=== PATIENT | female | born 1955 | race Hispanic/Latino ===

== ENCOUNTER 2016-11-13 18:44 | Inpatient (IN) | payer OTHER ==
[2016-11-13] MEDS ORDERED: MORPHINE IV ONE ×3 (19:55→23:10)
[2016-11-13] MEDS ORDERED: ZOFRAN IV ONE (20:46)
--- NOTE | 2016-11-13 20:56 | Emergency Department Report ---
ED Fall HPI - General Chief Complaint: Extremity Injury, Upper Stated Complaint: RIGHT SHOULDER PAIN Time Seen by Provider: 11/13/16 20:42 Source: patient Mode of arrival: Ambulatory Limitations: No Limitations - History of Present Illness MD Complaint: fall -: This evening Fall From: standing When Fall Occurred: just prior to arrival Fall Witnessed: yes, by bystander Place Fall Occurred: other (kroger) Loss of Consciousness: none Symptoms Prior to Fall: none Location - Extremities: Right: Shoulder Severity: severe Severity scale (0 -10): 9 Quality: sharp Context: tripped/slipped Associated Symptoms: denies: headache, neck pain, numbness, weakness, chest paint, shortness of breath, abdominal pain, hematuria, unable to walk, lightheaded, vertigo, confusion - Related Data Home Medications Medication Instructions Recorded Confirmed Last Taken ALBUTEROL Inhaler [ProAir HFA 1 inh PO DAILY PRN 11/13/16 11/13/16 Unknown Inhaler] Cyclobenzaprine HCl [Flexeril 5 MG 5 mg PO DAILY 11/13/16 11/13/16 Unknown TAB] FLUoxetine [PROzac] 20 mg PO QDAY 11/13/16 11/13/16 Unknown Fluticasone [Flonase] 1 spray NS QDAY 11/13/16 11/13/16 Unknown Furosemide [Lasix TAB] 40 mg PO QDAY 11/13/16 11/13/16 Unknown Hydroxychloroquine [Plaquenil] 200 mg PO BID 11/13/16 11/13/16 Unknown Ketoprofen 50 mg PO BID 11/13/16 11/13/16 Unknown Loratadine [Claritin] 10 mg PO DAILY 11/13/16 11/13/16 Unknown Metoprolol [Lopressor TAB] 50 mg PO BID 11/13/16 11/13/16 Unknown Montelukast [Singulair] 10 mg PO QPM 11/13/16 11/13/16 Unknown Omeprazole Magnesium [PriLOSEC Otc] 20 mg PO 3XW 11/13/16 11/13/16 Unknown sulfaSALAzine [Azulfidine] 750 mg PO DAILY 11/13/16 11/13/16 Unknown Allergies Allergy/AdvReac Type Severity Reaction Status Date / Time lisinopril Allergy Unknown Verified 11/13/16 19:31 ED Review of Systems ROS: Stated complaint: RIGHT SHOULDER PAIN Other details as noted in HPI Comment: All other systems reviewed and negative Constitutional: denies: chills, fever ENT: denies: ear pain Respiratory: denies: cough, shortness of breath Cardiovascular: denies: chest pain, palpitations Gastrointestinal: denies: abdominal pain, nausea, vomiting, hematemesis Genitourinary: denies: hematuria Skin: denies: lesions Neurological: denies: headache, weakness, numbness, paresthesias, confusion, abnormal gait, vertigo ED Past Medical Hx - Past Medical History Hx Hypertension: Yes Hx Diabetes: Yes Hx GERD: Yes Hx Asthma: Yes Additional medical history: sjogren's syndrome,sleep apnea with C-PAP, polycystic Ovarian,benign breast disease,fibromyalgia,RA,cardiomyopathy,AFIB - Surgical History Additional Surgical History: tonsillectomy,umbilical hernia,carpal tunnel syndrome. FX front upper jaw,left wrist,pelvis,bilateral ft - Social History Smoking Status: Never Smoker Substance Use Type: None - Medications Home Medications: Home Medications Medication Instructions Recorded Confirmed Last Taken Type ALBUTEROL Inhaler [ProAir HFA 1 inh PO DAILY PRN 11/13/16 11/13/16 Unknown History Inhaler] Cyclobenzaprine HCl [Flexeril 5 MG 5 mg PO DAILY 11/13/16 11/13/16 Unknown History TAB] FLUoxetine [PROzac] 20 mg PO QDAY 11/13/16 11/13/16 Unknown History Fluticasone [Flonase] 1 spray NS QDAY 11/13/16 11/13/16 Unknown History Furosemide [Lasix TAB] 40 mg PO QDAY 11/13/16 11/13/16 Unknown History Hydroxychloroquine [Plaquenil] 200 mg PO BID 11/13/16 11/13/16 Unknown History Ketoprofen 50 mg PO BID 11/13/16 11/13/16 Unknown History Loratadine [Claritin] 10 mg PO DAILY 11/13/16 11/13/16 Unknown History Metoprolol [Lopressor TAB] 50 mg PO BID 11/13/16 11/13/16 Unknown History Montelukast [Singulair] 10 mg PO QPM 11/13/16 11/13/16 Unknown History Omeprazole Magnesium [PriLOSEC Otc] 20 mg PO 3XW 11/13/16 11/13/16 Unknown History sulfaSALAzine [Azulfidine] 750 mg PO DAILY 11/13/16 11/13/16 Unknown History ED Physical Exam - General Limitations: Physical Limitation General appearance: alert, in distress (secondary to pain) - Head Head exam: Present: atraumatic, normal inspection - Eye Eye exam: Present: normal appearance Pupils: Present: normal accommodation - ENT ENT exam: Present: normal exam - Neck Neck exam: Present: normal inspection. Absent: tenderness, meningismus, full ROM - Respiratory Respiratory exam: Present: normal lung sounds bilaterally. Absent: respiratory distress, wheezes, rhonchi - Cardiovascular Cardiovascular Exam: Present: regular rate, normal rhythm, normal heart sounds - GI/Abdominal GI/Abdominal exam: Present: soft. Absent: distended, tenderness, guarding, rebound, rigid, mass, pulsatile mass - Expanded Upper Extremity Exam Right Shoulder Exam: Present: tenderness, dislocation. Absent: full ROM, swelling, abrasion, deformity, erythema, tenderness over AC joint Upper Arm exam: Present: normal inspection. Absent: tenderness Elbow exam: Present: normal inspection, full ROM. Absent: tenderness, ecchymosis, deformity Forearm Wrist exam: Present: full ROM. Absent: tenderness, swelling, laceration , deformity Hand Wrist exam: Present: normal inspection, full ROM. Absent: tenderness, swelling, laceration Neuro motor exam: Present: wrist extension intact, thumb opposition intact, thumb IP flexion intact, thumb adduction intact, fingers 2-5 abduction intact Vascular: Present: normal capillary refill. Absent: vascular compromise - Back Exam Back exam: Present: full ROM. Absent: CVA tenderness (R), CVA tenderness (L) - Neurological Exam Neurological exam: Present: alert, oriented X3, CN II-XII intact, normal gait. Absent: motor sensory deficit - Skin Skin exam: Present: warm, intact, normal color ED Course Vital Signs 11/13/16 11/13/16 11/13/16 19:21 20:46 21:35 Temperature 99 F Temperature [ 98.8 F Post-Procedure] Temperature [ 98.8 F Pre-Procedure] Pulse Rate 84 Pulse Rate [ 89 Intra-Procedure ] Pulse Rate [ 86 Post-Procedure] Pulse Rate [Pre 95 H -Procedure] Respiratory 18 18 Rate Respiratory 18 Rate [Intra- Procedure] Respiratory 20 Rate [Post- Procedure] Respiratory 22 Rate [Pre- Procedure] Blood Pressure 152/63 Blood Pressure 164/78 [Intra- Procedure] Blood Pressure 130/75 [Post-Procedure ] Blood Pressure 170/72 [Pre-Procedure] O2 Sat by Pulse 99 99 Oximetry O2 Sat by Pulse 99 Oximetry [ Intra-Procedure ] O2 Sat by Pulse 99 Oximetry [Post -Procedure] O2 Sat by Pulse 99 Oximetry [Pre- Procedure] - Reevaluation(s) Reevaluation #1: 11/13/16 21:[address] Pal who advised to go a head and reduce the shoulder. Reevaluation #2: 11/13/16 23:[address] Gamboa for admission. NPO after midnight for surgery in AM per Dr Pal - Moderate Sedation ASA Class: III Mallampati Airway Score: 3 Preparation: diagnostic cardiac sonographer applied, pulse oximeter, capnometry used, supplemental O2 applied, reversal agents at bedside, suction/airway equipment at bedside, IV secured Fentanyl: IV Midazolam: IV Midazolam Dose: 5 IV Etomidate Dose (mgs): 10 Complications: none Patient Tolerated Procedure: well - Orthopedic Fracture Reduction Fracture #1 Consent Obtained: emergent situation Time Out Performed: Yes Side: right Fracture Reduction Location: humerus Analgesia: moderate sedation Technique: traction/counter-traction Post-Reduction Neuro Exam: intact Post-Reduction Vascular Exam: intact Splint Applied: Yes Patient Tolerated Procedure: well - Orthopedic Joint Reduction Joint #1 Consent Obtained: emergent situation Time Out Performed: Yes Side: right Joint Reduction Location: shoulder Analgesia: moderate sedation Shoulder Technique Used (if applicable): traction/counter-traction Technique Used: traction/counter-traction, direct manipulation Post-Reduction Neuro Exam: intact Post-Reduction Vascular Exam: intact Post Reduction X-Ray Obtained: Yes Splint Applied: Yes Patient Tolerated Procedure: well ED Medical Decision Making - Lab Data Result diagrams: 11/13/16 22:44 11/13/16 22:21 Critical care attestation.: If time is entered above; I have spent that time in minutes in the direct care of this critically ill patient, excluding procedure time. ED Disposition Clinical Impression: Humeral fracture, Shoulder dislocation Disposition: OP ADMIT IP TO THIS HOSP Is pt being admited?: Yes Does the pt Need Aspirin: No Condition: Stable Referrals: PRIMARY CARE,MD [Primary Care Provider] - 3-5 Days
[2016-11-13] MEDS ORDERED: VERSED IV ONE ×2 (21:20→21:25)
[2016-11-13] MEDS ORDERED: SUBLIMAZE IV ONE ×2 (21:20→21:40)
[2016-11-13] MEDS ORDERED: NACL 0.9% 1000 ML 1,000 ML ONE (21:26)
[2016-11-13] MEDS ORDERED: NACL 0.9% 1000 ML 1,000 ML IV ONE (21:29)
[2016-11-13] MEDS ORDERED: VERSED IV NR (21:40)
[2016-11-13] MEDS: AMIDATE IV ONE ×2 (21:42→21:48)
[2016-11-13 22:54] LABS: Basophils % (Auto) 0.2 % (0.0-1.8); Eosinophils % (Auto) 1.9 % (0.0-4.3); Hematocrit 37.1 % (30.3-42.9); Mean Corpuscular HGB Conc 32 % (30-34); Mean Corpuscular Hemoglobin 28 pg (28-32); Mean Corpuscular Volume 85 fl (79-97); Platelet Count 259 K/mm3 (140-440); Red Blood Count 4.35 M/mm3 (3.65-5.03); Red Cell Distribution Width 14.8 % (13.2-15.2)
[2016-11-13 22:54] LABS: Albumin 4.1 g/dL (3.9-5); Albumin/Globulin Ratio 1.8 %; Alkaline Phosphatase 55 units/L (35-129); Anion Gap 22 mmol/L; BUN/Creatinine Ratio 21.66; Blood Urea Nitrogen 13 mg/dL (7-17); Calcium 9.1 mg/dL (8.4-10.2); Carbon Dioxide 21 mmol/L (22-30); Chloride 102.8 mmol/L (98-107); Glucose 193 mg/dL (65-100); Potassium 4.9 mmol/L (3.6-5.0); Sodium 141 mmol/L (137-145); Total Protein 6.4 g/dL (6.3-8.2)
[2016-11-13] MEDS ORDERED: MORPHINE ONE (23:11)
--- NOTE | 2016-11-13 23:23 | History and Physical Report ---
History of Present Illness Chief complaint: I fell and hurt my arm History of present illness: 61 YO Female ([employer]) with HTN, DM, GERD, ASthma, MO, JIGNA, Fibromyalgia, RA, PCOS, Sjogrens, A Fib presents to ED for evaluation. Pt states that she tripped and experienced a fall today landing on her right shoulder. Pt experienced pain immediately after fall and was unable to move her arm due to pain. Pain was 9/10, worse with movement, relieved minimally with non movement. Pt seen and evaluated in ED and found to have a dislocated Right shoulder, and was reduced under anesthesia. Pt denies fever, chills, CP, Palpitations, NVD, syncope, productive cough, or recent ill contacts. Past History Past Medical History: diabetes, GERD, hypertension Past Surgical History: hysterectomy, hernia repair, tonsillectomy, Other ( carpal tunnel) Social history: single, other ([employer]) Family history: diabetes, hypertension Medications and Allergies Allergies Allergy/AdvReac Type Severity Reaction Status Date / Time lisinopril Allergy Unknown Verified 11/13/16 19:31 Home Medications Medication Instructions Recorded Confirmed Last Taken Type ALBUTEROL Inhaler [ProAir HFA 1 inh PO DAILY PRN 11/13/16 11/13/16 Unknown History Inhaler] Cyclobenzaprine HCl [Flexeril 5 MG 5 mg PO DAILY 11/13/16 11/13/16 Unknown History TAB] FLUoxetine [PROzac] 20 mg PO QDAY 11/13/16 11/13/16 Unknown History Fluticasone [Flonase] 1 spray NS QDAY 11/13/16 11/13/16 Unknown History Furosemide [Lasix TAB] 40 mg PO QDAY 11/13/16 11/13/16 Unknown History Hydroxychloroquine [Plaquenil] 200 mg PO BID 11/13/16 11/13/16 Unknown History Ketoprofen 50 mg PO BID 11/13/16 11/13/16 Unknown History Loratadine [Claritin] 10 mg PO DAILY 11/13/16 11/13/16 Unknown History Metoprolol [Lopressor TAB] 50 mg PO BID 11/13/16 11/13/16 Unknown History Montelukast [Singulair] 10 mg PO QPM 11/13/16 11/13/16 Unknown History Omeprazole Magnesium [PriLOSEC Otc] 20 mg PO 3XW 11/13/16 11/13/16 Unknown History sulfaSALAzine [Azulfidine] 750 mg PO DAILY 11/13/16 11/13/16 Unknown History Active Meds: Active Medications Midazolam HCl (Versed) 2 mg IV ONCE NR Stop: 11/14/16 21:39 Last Admin: 11/13/16 21:45 Dose: 2 mg Review of Systems All systems: negative Constitutional: other (fall), no weight loss Ears, nose, mouth and throat: no ear pain Breasts: no swelling Cardiovascular: no chest pain Respiratory: no cough Gastrointestinal: no abdominal pain Genitourinary Female: no flank pain Rectal: no pain Musculoskeletal: no neck stiffness Integumentary: no rash Neurological: no head injury Psychiatric: no anxiety Endocrine: no cold intolerance Hematologic/Lymphatic: no easy bruising Allergic/Immunologic: no urticaria Exam - Constitutional Vitals: Temp Pulse Resp BP Pulse Ox 98.8 F 95 H 18 170/72 99 11/13/16 21:35 11/13/16 21:35 11/13/16 23:20 11/13/16 21:35 11/13/16 21:35 General appearance: Present: mild distress, obese - EENT Eyes: Present: PERRL ENT: hearing intact, clear oral mucosa - Neck Neck: Present: supple, normal ROM - Respiratory Respiratory effort: normal Respiratory: bilateral: CTA - Cardiovascular Rhythm: regular Heart Sounds: Present: S1 & S2. Absent: rub, click - Extremities Extremities: pulses symmetrical, No edema Peripheral Pulses: within normal limits - Abdominal General gastrointestinal: Present: soft, non-tender, non-distended, normal bowel sounds Female genitourinary: Present: normal - Integumentary Integumentary: Present: clear, warm, dry - Musculoskeletal Musculoskeletal: gait normal, strength equal bilaterally - Psychiatric Psychiatric: appropriate mood/affect, intact judgment & insight - Neurologic Neurologic: CNII-XII intact, moves all extremities Results - Labs CBC & Chem 7: 11/13/16 22:44 11/13/16 22:21 Labs: Abnormal lab results 11/13/16 11/13/16 Range/Units 22:21 22:44 WBC 14.0 H (4.5-11.0) K/mm3 [place] % (Auto) 9.5 H (0.0-7.3) % [place] # 1.3 H (0.0-0.8) K/mm3 Seg Neutrophils # 9.6 H (1.8-7.7) K/mm3 Carbon Dioxide 21 L (22-30) mmol/L Creatinine 0.6 L (0.7-1.2) mg/dL Glucose 193 H (65-100) mg/dL Assessment and Plan - Patient Problems (1) HTN (hypertension) Current Visit: Yes Status: Acute Qualifiers: Hypertension type: H Plan to address problem: monitor bp q shift, (2) JIGNA (obstructive sleep apnea) Current Visit: Yes Status: Acute Plan to address problem: supportive care, supplemental oxygen, NIPPV as clinically indicated. (3) Fibromyalgia Current Visit: Yes Status: Acute Plan to address problem: continue current therapy, supportive care. (4) Humeral fracture Current Visit: Yes Status: Acute Qualifiers: Encounter type: E Humerus Location: H Fracture type: F Fracture morphology: F Fracture alignment: F Salter-Harper Fracture Type: S Laterality: L Fracture healing: F Plan to address problem: Lutz consulted, pending surgical intervention in AM (5) Shoulder dislocation Current Visit: Yes Status: Acute Qualifiers: Encounter type: E Laterality: L Plan to address problem: Ortho consulted, S/P shoulder reduction (6) DVT prophylaxis Current Visit: Yes Status: Acute
[2016-11-13 23:24] LABS: Alanine Aminotransferase 27 units/L (7-56)
[2016-11-13] MEDS ORDERED: DULCOLAX PR PRN (23:38)
[2016-11-13] MEDS ORDERED: PERCOCET 5/325 PO PRN (23:38)
[2016-11-13] MEDS ORDERED: ZOFRAN IV PRN (23:38)
[2016-11-13] MEDS ORDERED: MILK OF MAGNESIA PO PRN (23:38)
[2016-11-13] MEDS ORDERED: TYLENOL PO PRN (23:38)
[2016-11-14 01:10] LABS: Partial Thromboplastin Time 24.3 Sec. (24.2-36.6)
[2016-11-14] MEDS: MORPHINE IV PRN ×2 (02:08→08:05)
--- NOTE | 2016-11-14 07:08 | Admit Criteria Form ---
Admission Criteria Documentation: MUSCULOSKELETAL DISEASE GRG Clinical Indications for Admission to Inpatient Care (Place 'X' for any and all applicable criteria): Hospital admission is needed for appropriate care of the patient because of 1 or more of the following: [X ]I. Fracture, dislocation, or other musculoskeletal injury requiring inpatient care(medical) as indicated by 1 or more of the following(4)(5)(6)(7) [ ]a) Vertebral fracture requiring observation for instability or neurologic compromise (8) [ ]b) Compartment syndrome (proven or cannot be ruled out during observation level of care) (9) [ ]c) Limb-threatening injury [ ]d) Major injury requiring inpatient stabilization such as traction initiation or external fixation before internal fixation or closure of complex or open fracture [X ]e) Major injury requiring inpatient treatment after emergency or observation level care (as appropriate) [ ]f) Severe pain requiring acute inpatient management [ ]g) Injury with suspicion of abuse or neglect (eg., child, dependent elderly) [ ]II. Newly diagnosed or suspected bone, joint, or orthopedic device infection (e.g., osteomyelitis, septic arthritis) needing 1 or more of the following(1)(2)(3) [ ]a) IV antibiotics that cannot be initiated in other than inpatient setting (e.g., patient too unstable or home infusion not available) [ ]b) Device removal or replacement [ ]c) Bone or soft tissue debridement [ ]d) Joint drainage (drain placement or repetitive aspirations) [ ]III. Severe rheumatologic disease (e.g., systemic lupus erythematosus, rheumatoid arthritis) with complications or comorbidities (Also use Optimal Recovery Care Criteria or General Recovery Criteria as appropriate on the basis of predominant condition), including 1 or more of the following( 10)(11)(12)(13) [ ]a) Severe infection (e.g., [employer] SW[employer] infection, sepsis) (14) [ ]b) Respiratory complications, including 1 or more of the following : [ ]i) Pleural effusion with respiratory compromise [ ]ii) Pulmonary hypertension with congestive failure [ ]iii) Respiratory failure [ ]iv) Pulmonary hemorrhage (15) [ ]c) Hematologic disease, including 1 or more of the following: [ ]i) Coagulopathy with bleeding [ ]ii) Thrombosis with hypercoagulable state [ ]iii) Thrombotic thrombocytopenic purpura [ ]d) Cerebritis with seizures, psychosis, or other severe abnormalities [ ]e) Vertebral destruction with monitoring needed for cervical myelopathy& possible respiratory compromise [ ]f) Exacerbation that requires inpatient treatment (e.g., intravenous immunosuppression) (16) [ ]g) Acute renal failure [ ]h) Cerebritis with seizures, psychosis, Altered mental status, or other neurologic abnormalities [ ]i) Pericardial effusion with tamponade [ ]j) Vertebral destruction, with monitoring needed for cervical myelopathy and possible respiratory compromise [ ]IV. Severe vasculitis with complications or comorbidities (Also use Optimal Recovery Care Criteria General Recovery Criteria as appropriate on the basis of predominant condition), including 1 or more of the following(11)(12)(17)(18)(19)(20) [ ]a) Exacerbation that requires inpatient treatment (e.g., intravenous immunosuppression) (19)(21) [ ]b) Pulmonary hemorrhage (15) [ ]c) [employer] SW[employer] O[employer] vasculitis with seizures, psychosis, Altered mental status that is severe or persistent, or other severe abnormalities (22) [ ]d) Cerebral infarction [ ]e) Gastrointestinal ischemia [ ]f) Gangrene or threatened amputation [ ]g) Renal failure (16) [ ]h) Other significant complications of vasculitis ( eg., tissue or organ ischemia, organ dysfunction ) [ ]V. Severe myopathy as indicated by 1 or more of the following (28)(29) [ ]a) New onset of airway compromise or inability to swallow [ ]b) Respiratory deterioration with observation needed for impending respiratory failure [ ]c) Exacerbation that requires inpatient treatment (e.g., intravenous immunosuppression) [ ]. Severe crystal gout (arthropathy) indicated by 1 or more of the following (23)(24) [ ]a) Severe pain requiring acute inpatient management [ ]b) Exacerbation that requires inpatient treatment (e.g., intravenous treatment) [ ]VII.Rhabdomyolysis and 1 or more of the following (25)(26)(27) [ ]a) Acute renal failure [ ]b) Need for intravenous hydration after emergency or observation level care (as appropriate) [ ]c) Inability to maintain oral hydration [ ]d) Change in mental status [ ]e) Electrolyte abnormality that remains after emergency or observation level care (as appropriate) [ ]VIII Post amputation complication, as indicated by ANY ONE of the following [ ]a) Infection [ ]b) Dehiscence [ ]c) Myodesis failure [ ]IX. Severe pain requiring acute inpatient management due to musculoskeletal condition [ ]X. Musculoskeletal Disease and ALL of the following: [ ]a) Symptom or finding for which emergency and observation care have failed or are not considered appropriate (Use General Criteria: Observation Care as appropriate) [ ]b) Presence of ANY ONE of the following [ ]i) A General Admission Criteria [ ]ii) A Pediatric General Admission Criteria The original [facility] [employer] content created by [facility] [email or web address] has been revised. The portions of the content which have been revised are identified through the use of italic text or in bold, and [facility] has neither reviewed nor approved the modified material. All other unmodified content is copyright [facility] [email or web address]. Please see references footnoted in the original [email or web address] edition 2016 Admission Criteria Met: Yes
[2016-11-14] MEDS ORDERED: ZOFRAN ONE (08:00)
--- NOTE | 2016-11-14 08:52 | XRay Report ---
PORTABLE CHEST INDICATION: Chest pain. COMPARISON: 06/13/2010 FINDINGS: Portable, frontal chest radiograph demonstrates slight motion artifact with grossly stable cardiomediastinal silhouette and increased bronchovascular prominence centrally, given slight difference in inspiration. No large pleural effusions or CHF. EKG leads. Grossly stable bones. CONCLUSION: Findings, as above. Thank you for the opportunity to participate in this patient's care.
--- NOTE | 2016-11-14 09:00 | XRay Report ---
RIGHT SHOULDER, 3 views: History: Pain. A comminuted fracture involving the right humeral head and neck is identified. No additional fracture is appreciated. Large joint effusion is suspected. IMPRESSION: Right humeral head and neck fracture. Joint effusion.
--- NOTE | 2016-11-14 09:01 | XRay Report ---
RIGHT SHOULDER, ONE VIEW History: Postreduction film. Findings: Position and alignment of the right humeral head is unchanged since earlier today at 1943 hrs. There is inferior subluxation of the humeral head secondary to a large joint effusion/hemarthrosis but no dislocation. Comminuted fracture of the proximal humerus is unchanged. Impression: No change.
[2016-11-14] MEDS ORDERED: AMIDATE IV ONE (10:40)
[2016-11-14] MEDS ORDERED: MORPHINE IV PRN ×2 (11:38→20:18)
[2016-11-14] MEDS ORDERED: PROAIR IH PRN (11:38)
[2016-11-14] MEDS: NOVOLOG SUB-Q SCH ×3 (12:00→23:27)
[2016-11-14 12:55] LABS: Basophils % (Auto) 0.5 % (0.0-1.8); Eosinophils % (Auto) 1.3 % (0.0-4.3); Hemoglobin 11.8 gm/dl (10.1-14.3); Mean Corpuscular HGB Conc 34 % (30-34); Mean Corpuscular Hemoglobin 28 pg (28-32); Mean Corpuscular Volume 84 fl (79-97); Platelet Count 222 K/mm3 (140-440); Red Blood Count 4.19 M/mm3 (3.65-5.03); Red Cell Distribution Width 14.7 % (13.2-15.2); White Blood Count 10.9 K/mm3 (4.5-11.0)
[2016-11-14] MEDS: LASIX PO SCH (13:00)
[2016-11-14] MEDS: LOPRESSOR PO SCH ×2 (13:00→23:10)
[2016-11-14] MEDS: PLAQUENIL PO SCH ×2 (13:00→23:10)
[2016-11-14] MEDS: PROzac PO SCH (13:00)
[2016-11-14] MEDS: AZULFIDINE PO SCH (13:00)
--- NOTE | 2016-11-14 14:22 | Progress Note ---
Assessment and Plan Assessment and plan: 61 YO Female (Jehova's Witness) with HTN, DM, GERD, ASthma, MO, JIGNA, Fibromyalgia, RA, PCOS, Sjogrens, A Fib presents to ED for evaluation. Pt states that she tripped and experienced a fall today landing on her right shoulder. Pt experienced pain immediately after fall and was unable to move her arm due to pain. Pain was 9/10, worse with movement, relieved minimally with non movement. Pt seen and evaluated in ED and found to have a dislocated Right shoulder, and was reduced under anesthesia. Pt denies fever, chills, CP, Palpitations, NVD, syncope, productive cough, or recent ill contacts. * Intermittent fracture of the proximal humerus with inferior subluxation of the humeral head * Orthopedic surgeon following patient planned for surgery today. Continue pain control. * Hypertension * Continue home medication. * Diabetes Mellitus * Patient on metformin at home, will start on Accu-Cheks before meals and at bedtime * Fibromyalgia * Continue supportive care * Morbid Obesity * Discussed with patient weight management options she verbalizes understanding * Leukocytosis-resolved * Obstructive sleep apnea * CPAP daily at bedtime * DVT and GI prophylaxis * Plan care discussed with the patient in detail History Interval history: Patient seen and examined this morning remains with pain on the right shoulder which is currently in a sling. Patient was admitted with right upper extremity pain following a fall was noted to have a comminuted fracture of the proximal humerus with inferior subluxation of the humeral head. Patient describes as 5/ 10 in intensity was with movement. Denies any fever, nausea, vomiting or diarrhea. Hospitalist Physical - Physical exam Narrative exam: VITAL SIGNS: Reviewed. GENERAL: The patient appeared well nourished and normally developed. Morbidly obese, Vital signs as documented. HEAD: No signs of head trauma. EYES: Pupils are equal. Extraocular motions intact. EARS: Hearing grossly intact. MOUTH: Oropharynx is normal. NECK: No adenopathy, no JVD. CHEST: Chest with clear breath sounds bilaterally. No wheezes, rales, or rhonchi. CARDIAC: Regular rate and rhythm. S1 and S2, without murmurs, gallops, or rubs. VASCULAR: No Edema. Peripheral pulses normal and equal in all extremities. ABDOMEN: Soft, without detectable tenderness. No sign of distention. No rebound or guarding, and no masses palpated. Bowel Sounds normal. MUSCULOSKELETAL: Limited range of motion right upper extremity in a sling. Extremities without clubbing, cyanosis or edema. NEUROLOGIC EXAM: Alert and oriented x 3. No focal sensory or strength deficits. Speech normal. Follows commands. PSYCHIATRIC: Mood normal. SKIN: No rash or lesions. - Constitutional Vitals: Temp Pulse Resp BP Pulse Ox 99.2 F 81 19 125/77 97 11/14/16 07:00 11/14/16 07:00 11/14/16 07:00 11/14/16 07:00 11/14/16 02:00 General appearance: Present: mild distress, obese Results - Labs CBC & Chem 7: 11/14/16 12:29 11/13/16 22:21 Labs: Laboratory Last Values WBC 10.9 K/mm3 (4.5-11.0) 11/14/16 12:29 RBC 4.19 M/mm3 (3.65-5.03) 11/14/16 12:29 Hgb 11.8 gm/dl (10.1-14.3) 11/14/16 12:29 Hct 35.0 % (30.3-42.9) 11/14/16 12:29 MCV 84 fl (79-97) 11/14/16 12:29 MCH 28 pg (28-32) 11/14/16 12:29 MCHC 34 % (30-34) 11/14/16 12:29 RDW 14.7 % (13.2-15.2) 11/14/16 12:29 Plt Count 222 K/mm3 (140-440) 11/14/16 12:29 Lymph % (Auto) 16.9 % (13.4-35.0) 11/14/16 12:29 [place] % (Auto) 12.2 % (0.0-7.3) H 11/14/16 12:29 Eos % (Auto) 1.3 % (0.0-4.3) 11/14/16 12:29 Baso % (Auto) 0.5 % (0.0-1.8) 11/14/16 12:29 Lymph # 1.8 K/mm3 (1.2-5.4) 11/14/16 12:29 [place] # 1.3 K/mm3 (0.0-0.8) H 11/14/16 12:29 Eos # 0.1 K/mm3 (0.0-0.4) 11/14/16 12:29 Baso # 0.1 K/mm3 (0.0-0.1) 11/14/16 12:29 Seg Neutrophils % 69.1 % (40.0-70.0) 11/14/16 12:29 Seg Neutrophils # 7.5 K/mm3 (1.8-7.7) 11/14/16 12:29 PT 13.1 Sec. (12.2-14.9) 11/13/16 00:10 INR 1.00 (0.87-1.13) 11/13/16 00:10 APTT 24.3 Sec. (24.2-36.6) 11/13/16 00:10 Sodium 141 mmol/L (137-145) 11/13/16 22:21 Potassium 4.9 mmol/L (3.6-5.0) 11/13/16 22:21 Chloride 102.8 mmol/L (98-107) 11/13/16 22:21 Carbon Dioxide 21 mmol/L (22-30) L 11/13/16 22:21 Anion Gap 22 mmol/L 11/13/16 22:21 BUN 13 mg/dL (7-17) 11/13/16 22:21 Creatinine 0.6 mg/dL (0.7-1.2) L 11/13/16 22:21 Estimated GFR > 60 ml/min 11/13/16 22:21 BUN/Creatinine Ratio 21.66 % 11/13/16 22:21 Glucose 193 mg/dL (65-100) H 11/13/16 22:21 POC Glucose 169 (70-105) H 11/14/16 11:38 Calcium 9.1 mg/dL (8.4-10.2) 11/13/16 22:21 Total Bilirubin 0.20 mg/dL (0.1-1.2) 11/13/16 22:21 AST 38 units/L (5-40) 11/13/16 22:21 ALT 27 units/L (7-56) 11/13/16 22:21 Alkaline Phosphatase 55 units/L (35-129) 11/13/16 22:21 Total Protein 6.4 g/dL (6.3-8.2) 11/13/16 22:21 Albumin 4.1 g/dL (3.9-5) 11/13/16 22:21 Albumin/Globulin Ratio 1.8 % 11/13/16 22:21 - Imaging and Cardiology Chest x-ray: image reviewed (no acute pathology noted)
[2016-11-14] MEDS: FLONASE NS SCH (14:28)
--- NOTE | 2016-11-14 16:28 | Anesthesia Day of Surgery ---
Anesthesia Day of Surgery - Day of Surgery Patient Examined: Yes Patient H&P Reviewed: Yes Patient is NPO: Yes
--- NOTE | 2016-11-14 16:28 | Anesthesia Consultation ---
Anesthesia Consult and Med Hx Date of service: 11/14/16 - Airway Anesthetic Teeth Evaluation: Good ROM Head & Neck: Adequate Mental/Hyoid Distance: Adequate Mallampati Class: Class II Intubation Access Assessment: Good - Pulmonary Exam CTA: Yes - Cardiac Exam Cardiac Exam: RRR - Pre-Operative Health Status ASA Pre-Surgery Classification: ASA3 Proposed Anesthetic Plan: General Nerve Block: IS - Pulmonary Hx Asthma: Yes COPD: No Hx Pneumonia: Yes - Cardiovascular System Hx Hypertension: Yes - Central Nervous System Hx Psychiatric Problems: No - Endocrine Hx End Stage Renal Disease: No Hx Non-Insulin Dependent Diabetes: Yes - Hematic Hx Anemia: No Hx Sickle Cell Disease: No - Other Systems Hx Alcohol Use: Yes Hx Substance Use: No Hx Cancer: No Hx Obesity: Yes
[2016-11-14] MEDS ORDERED: DECADRON IV ONE (16:31)
[2016-11-14] MEDS ORDERED: DIPRIVAN 10 MG/ML IV ONE (16:42)
[2016-11-14] MEDS ORDERED: SUBLIMAZE ONE (16:42)
[2016-11-14] MEDS ORDERED: XYLOCAINE 1% 20 mL ONE (16:47)
[2016-11-14] MEDS ORDERED: MARCAINE-EPI/PF 0.5%-1:200,000 INFILTRATI ONE (16:47)
[2016-11-14] MEDS: NACL 0.9% 1000 ML 1,000 ML IV SCH (16:53)
[2016-11-14] MEDS ORDERED: PEPCID PO NR (17:00)
[2016-11-14] MEDS ORDERED: ANCEF/STERILE WATER 2 GM/20 ML IV NR (17:00)
[2016-11-14] MEDS ORDERED: NEURONTIN PO NR (17:00)
[2016-11-14] MEDS ORDERED: MARCAINE 0.5% INFILTRATI NR (17:00)
[2016-11-14] MEDS ORDERED: VERSED IV NR (17:00)
[2016-11-14] MEDS: SINGULAIR PO SCH (17:22)
[2016-11-14] MEDS ORDERED: XYLOCAINE MPF 2% ONE (18:34)
[2016-11-14] MEDS ORDERED: NACL 0.9% 1000 ML 1,000 ML ONE (19:32)
[2016-11-14] MEDS: PROVENTIL IH PRN (20:12)
--- NOTE | 2016-11-14 20:39 | Procedure Note ---
Date of procedure: 11/14/16 Pre-op diagnosis: fracture dislocation right shoulder Post-op diagnosis: same Procedure: Procedure- close reduction and insertion of intramedullary nail right humerus Indications - [id number] female who complained of right shoulder pain after a slip and fall injury, she was seen in the emergency room where x-rays were taken revealing a fracture dislocation. Multiple attempts at closed reduction were unsuccessful therefore patient was admitted and being taken now to the or for the above procedure Procedure Patient was brought to the OR after being given a scalene nerve block in preoperative holding she was placed on the OR table in a supine position followed and induction and intubation by anesthesia patient was placed in a beachchair position with the right upper extremity draped and suspended from the table. The right shoulder and arm was then prepped and draped in the usual sterile manner. Timeout procedure was done to identify the patient and the. Using C-arm fluoroscopy a guidewire placed over the intended insertion site a stab wound was made on the top of the shoulder and was carried down through skin and subcutaneous and through the deltoid and supraspinatus tendon guidewire was then advanced further into the canal using C-arm fluoroscopy asked to guidewire was then overreamed a short IM nail was then inserted antegrade into the proximal humerus again under C-arm fluoroscopy 2 locking screws were placed proximally through the greater tuberosity and lesser tuberosities a third screw noted at the kickstand was used to stabilize the proximal and distal fragments this was then followed by 2 distally locking screws in AP and lateral image was obtained and showed good reduction of the fracture as well as the anterior dislocation following this the wound was copiously irrigated the incision was closed starting with the rotator cuff tendon deltoid fascia subcutaneous tissue and finally the skin the additional stab wounds for the proximal and distal locking screws were also irrigated and closed routine postoperative dressings were applied the patient tolerated the procedure there were no complications Anesthesia: GETA Surgeon: ROSI BLAIR (veterinary assistant Phill Mitchell) Estimated blood loss: 50-100ml Pathology: none Condition: stable Disposition: PACU
[2016-11-14] MEDS: DILAUDID IV PRN ×2 (20:55→23:11)
[2016-11-14] MEDS ORDERED: TORADOL IV PRN ×3 (20:58→21:45)
[2016-11-14] MEDS ORDERED: SODIUM CHLORIDE FLUSH SYRINGE 10 ML IV SCH (21:00)
[2016-11-14] MEDS ORDERED: NORMODYNE IV ONE (21:15)
[2016-11-15] MEDS ORDERED: ANCEF/NS 1 GM/50 ML 1 GM/50 ML BAG IV SCH (01:00)
[2016-11-15] MEDS: DILAUDID IV PRN ×2 (06:28→09:01)
[2016-11-15] MEDS: NACL 0.9% 1000 ML 1,000 ML IV SCH (06:30)
--- NOTE | 2016-11-15 08:12 | XRay Report ---
RIGHT SHOULDER, ONE VIEW History: Right shoulder fracture, intraoperative film. Findings: 2 AP fluoroscopic images of the right shoulder were obtained during surgery. The regional coordinator image demonstrates a comminuted fracture of the right humeral head and neck. The second image demonstrates internal fixation of the fracture with metal adin and screws. Alignment is near-anatomic. Please correlate with the procedural report by Dr. Lawson if needed. Impression: Open reduction and internal fixation of a proximal right humerus fracture.
--- NOTE | 2016-11-15 08:14 | XRay Report ---
RIGHT SHOULDER, 2 VIEWS History: Right shoulder film, postoperative films. Pain. Findings: AP and internally rotated films of the right shoulder demonstrate an internally fixated proximal humerus fracture. Alignment is near-anatomic. Impression: Internal fixation of a proximal right humerus fracture.
[2016-11-15] MEDS: NOVOLOG SUB-Q SCH ×2 (08:44→12:24)
[2016-11-15] MEDS: PROVENTIL IH PRN (09:05)
[2016-11-15] MEDS: PLAQUENIL PO SCH ×2 (11:07→21:47)
[2016-11-15] MEDS: PROzac PO SCH (11:08)
[2016-11-15] MEDS: LOPRESSOR PO SCH ×2 (11:08→21:48)
[2016-11-15] MEDS: LASIX PO SCH (11:08)
[2016-11-15] MEDS: AZULFIDINE PO SCH (11:09)
[2016-11-15] MEDS: FLONASE NS SCH (12:20)
[2016-11-15] MEDS ORDERED: NACL ONE (12:41)
--- NOTE | 2016-11-15 13:33 | Progress Note ---
Assessment and Plan Assessment and plan: 61 YO Female (Jehova's Witness) with HTN, DM, GERD, ASthma, MO, JIGNA, Fibromyalgia, RA, PCOS, Sjogrens, A Fib presents to ED for evaluation. Pt states that she tripped and experienced a fall today landing on her right shoulder. Pt experienced pain immediately after fall and was unable to move her arm due to pain. Pain was 9/10, worse with movement, relieved minimally with non movement. Pt seen and evaluated in ED and found to have a dislocated Right shoulder, and was reduced under anesthesia. Pt denies fever, chills, CP, Palpitations, NVD, syncope, productive cough, or recent ill contacts. * Acute respiratory distress possible secondary to obesity hypoventilation syndrome * CT of the chest rule out PE given a one-time dose of steroids, start patient on DuoNeb scheduled in addition to when necessary * Intermittent fracture of the proximal humerus with inferior subluxation of the humeral head * Status post close reduction and insertion of intramedullary nail right humerus. Continue pain control. * Incentive spirometer * Hypertension * Continue home medication. * Diabetes Mellitus * Patient on metformin at home, will start on Accu-Cheks before meals and at bedtime * Fibromyalgia * Continue supportive care * Morbid Obesity * Discussed with patient weight management options she verbalizes understanding * Leukocytosis-resolved * Obstructive sleep apnea * CPAP daily at bedtime * DVT and GI prophylaxis * Plan care discussed with the patient in detail * Anticipate discharge in a.m. History Interval history: Patient seen and examined, proceeded to have right shoulder surgery yesterday. This morning having some shortness of breath. Although improving the time I saw her. She denies any chest pain. No other adverse event reported to me Hospitalist Physical - Physical exam Narrative exam: VITAL SIGNS: Reviewed. GENERAL: The patient appeared well nourished and normally developed. Morbidly obese, Vital signs as documented. HEAD: No signs of head trauma. EYES: Pupils are equal. Extraocular motions intact. EARS: Hearing grossly intact. MOUTH: Oropharynx is normal. NECK: No adenopathy, no JVD. CHEST: Chest with diminished breath sounds bilaterally. No wheezes, rales, or rhonchi. Mild increase in work of breathing CARDIAC: Regular rate and rhythm. S1 and S2, without murmurs, gallops, or rubs. VASCULAR: No Edema. Peripheral pulses normal and equal in all extremities. ABDOMEN: Soft, without detectable tenderness. No sign of distention. No rebound or guarding, and no masses palpated. Bowel Sounds normal. MUSCULOSKELETAL: Limited range of motion right upper extremity in a sling. Extremities without clubbing, cyanosis or edema. NEUROLOGIC EXAM: Alert and oriented x 3. No focal sensory or strength deficits. Speech normal. Follows commands. PSYCHIATRIC: Mood normal. SKIN: No rash or lesions. - Constitutional Vitals: Temp Pulse Resp BP Pulse Ox 98 F 80 20 121/68 95 11/15/16 08:00 11/15/16 08:00 11/15/16 08:00 11/15/16 08:00 11/15/16 08:00 General appearance: Present: mild distress, obese Results - Labs CBC & Chem 7: 11/14/16 12:29 11/13/16 22:21 Labs: Laboratory Last Values WBC 10.9 K/mm3 (4.5-11.0) 11/14/16 12:29 RBC 4.19 M/mm3 (3.65-5.03) 11/14/16 12:29 Hgb 11.8 gm/dl (10.1-14.3) 11/14/16 12:29 Hct 35.0 % (30.3-42.9) 11/14/16 12:29 MCV 84 fl (79-97) 11/14/16 12:29 MCH 28 pg (28-32) 11/14/16 12:29 MCHC 34 % (30-34) 11/14/16 12:29 RDW 14.7 % (13.2-15.2) 11/14/16 12:29 Plt Count 222 K/mm3 (140-440) 11/14/16 12:29 Lymph % (Auto) 16.9 % (13.4-35.0) 11/14/16 12:29 [place] % (Auto) 12.2 % (0.0-7.3) H 11/14/16 12:29 Eos % (Auto) 1.3 % (0.0-4.3) 11/14/16 12:29 Baso % (Auto) 0.5 % (0.0-1.8) 11/14/16 12:29 Lymph # 1.8 K/mm3 (1.2-5.4) 11/14/16 12:29 [place] # 1.3 K/mm3 (0.0-0.8) H 11/14/16 12:29 Eos # 0.1 K/mm3 (0.0-0.4) 11/14/16 12:29 Baso # 0.1 K/mm3 (0.0-0.1) 11/14/16 12:29 Seg Neutrophils % 69.1 % (40.0-70.0) 11/14/16 12:29 Seg Neutrophils # 7.5 K/mm3 (1.8-7.7) 11/14/16 12:29 PT 13.1 Sec. (12.2-14.9) 11/13/16 00:10 INR 1.00 (0.87-1.13) 11/13/16 00:10 APTT 24.3 Sec. (24.2-36.6) 11/13/16 00:10 D-Dimer 2719.62 ng/mlDDU (0-234) H 11/14/16 21:13 Sodium 141 mmol/L (137-145) 11/13/16 22:21 Potassium 4.9 mmol/L (3.6-5.0) 11/13/16 22:21 Chloride 102.8 mmol/L (98-107) 11/13/16 22:21 Carbon Dioxide 21 mmol/L (22-30) L 11/13/16 22:21 Anion Gap 22 mmol/L 11/13/16 22:21 BUN 13 mg/dL (7-17) 11/13/16 22:21 Creatinine 0.6 mg/dL (0.7-1.2) L 11/13/16 22:21 Estimated GFR > 60 ml/min 11/13/16 22:21 BUN/Creatinine Ratio 21.66 % 11/13/16 22:21 Glucose 193 mg/dL (65-100) H 11/13/16 22:21 POC Glucose 173 (70-105) H 11/15/16 12:01 Calcium 9.1 mg/dL (8.4-10.2) 11/13/16 22:21 Magnesium 1.60 mg/dL (1.7-2.3) L 11/14/16 21:13 Total Bilirubin 0.20 mg/dL (0.1-1.2) 11/13/16 22:21 AST 38 units/L (5-40) 11/13/16 22:21 ALT 27 units/L (7-56) 11/13/16 22:21 Alkaline Phosphatase 55 units/L (35-129) 11/13/16 22:21 Troponin T < 0.010 ng/mL (0.00-0.029) 11/14/16 21:13 Total Protein 6.4 g/dL (6.3-8.2) 11/13/16 22:21 Albumin 4.1 g/dL (3.9-5) 11/13/16 22:21 Albumin/Globulin Ratio 1.8 % 11/13/16 22:21 - Imaging and Cardiology CT scan - chest: pending
[2016-11-15] MEDS: ELIQUIS PO SCH (15:34)
[2016-11-15] MEDS: MORPHINE IV PRN ×2 (15:35→21:46)
[2016-11-15] MEDS: DUONEB *Not for PRN Use IH SCH ×2 (16:19→20:31)
[2016-11-15] MEDS: SINGULAIR PO SCH (19:23)
[2016-11-16] MEDS: ELIQUIS PO SCH ×2 (02:44→11:31)
[2016-11-16] MEDS: SINGULAIR PO SCH ×2 (02:44→17:47)
[2016-11-16] MEDS: NACL 0.9% 1000 ML 1,000 ML IV SCH (02:49)
[2016-11-16] MEDS: MORPHINE IV PRN (07:40)
[2016-11-16] MEDS: NOVOLOG SUB-Q SCH ×4 (08:39→17:46)
[2016-11-16] MEDS: DUONEB *Not for PRN Use IH SCH ×2 (09:14→15:19)
--- NOTE | 2016-11-16 11:18 | Discharge Summary ---
Providers - Providers Date of Admission: 11/13/16 23:38 Date of discharge: 11/16/16 Attending physician: DUNG PELAEZ MD 11/14/16 20:23 Physical Therapy Evaluation and Treat [CONS] Routine Comment: pendulum exercises right shoulder Reason For Exam: postop evaluation Primary care physician: MEMBERSHIP COUNSELOR Hospitalization Reason for admission: humerus fracture Condition: Stable Hospital course: 61 YO Female (Jehova's Witness) with HTN, DM, GERD, ASthma, MO, JIGNA, Fibromyalgia, RA, PCOS, Sjogrens, A Fib presents to ED for evaluation. Pt states that she tripped and experienced a fall today landing on her right shoulder. Pt experienced pain immediately after fall and was unable to move her arm due to pain. Pain was 9/10, worse with movement, relieved minimally with non movement. Pt seen and evaluated in ED and found to have a dislocated Right shoulder, and was reduced under anesthesia. Pt denies fever, chills, CP, Palpitations, NVD, syncope, productive cough, or recent ill contacts. * Acute respiratory distress possible secondary to obesity hypoventilation syndrome * Patient could not do VQ scan all CTA due to weight and recent surgery. Was started on presumptive treatment for PE due to elevated d-dimer. Side effect of medication discussed with the patient detail. * Home on Discharge. * Intermittent fracture of the proximal humerus with inferior subluxation of the humeral head * Status post close reduction and insertion of intramedullary nail right humerus. OT outpatient * Incentive spirometer * Hypertension * Continue home medication. * Diabetes Mellitus * Patient on metformin at home, resume PO * Fibromyalgia * Continue supportive care * Morbid Obesity * Discussed with patient weight management options she verbalizes understanding * Leukocytosis-resolved * Obstructive sleep apnea * CPAP daily at bedtime Patient advised to follow with Orthopedic surgery and PCP also with P[ulmonary on discharge. Disposition: [id number] HOME UNDER HOME [facility] Time spent for discharge: 35 MINS Core Measure Documentation - Palliative Care Palliative Care/ Comfort Measures: Not Applicable - Core Measures Any of the following diagnoses?: none - VTE Discharge Requirements Deep Vein Thrombosis/Pulmonary Embolism Present on Admission: No Exam - Physical Exam Narrative exam: VITAL SIGNS: Reviewed. GENERAL: The patient appeared well nourished and normally developed. Morbidly obese, Vital signs as documented. HEAD: No signs of head trauma. EYES: Pupils are equal. Extraocular motions intact. EARS: Hearing grossly intact. MOUTH: Oropharynx is normal. NECK: No adenopathy, no JVD. CHEST: Chest with diminished breath sounds bilaterally. No wheezes, rales, or rhonchi. CARDIAC: Regular rate and rhythm. S1 and S2, without murmurs, gallops, or rubs. VASCULAR: No Edema. Peripheral pulses normal and equal in all extremities. ABDOMEN: Soft, without detectable tenderness. No sign of distention. No rebound or guarding, and no masses palpated. Bowel Sounds normal. MUSCULOSKELETAL: Limited range of motion right upper extremity in a sling. Extremities without clubbing, cyanosis or edema. NEUROLOGIC EXAM: Alert and oriented x 3. No focal sensory or strength deficits. Speech normal. Follows commands. PSYCHIATRIC: Mood normal. SKIN: No rash or lesions. - Constitutional Vitals: Temp Pulse Resp BP Pulse Ox 99.8 F H 97 H 18 141/67 91 11/16/16 08:00 11/16/16 09:30 11/16/16 09:30 11/16/16 08:00 11/16/16 09:18 Plan Activity: advance as tolerated, fall precautions Diet: low fat, diabetic Special Instructions: record daily weights, record daily BP diary, physical therapy, occupational therapy, home oxygen via (2L/M NC) Additional Instructions: Do no return to work untill cleared by PCP in 1 week Follow up with: PRIMARY CAREMD [Primary Care Provider] - 3-5 Days ROSI BLAIR MD [Staff Physician] - 7 Days Prescriptions: Apixaban [Eliquis] 10 mg PO Q12HR 7 Days Apixaban [Eliquis] 5 mg PO BID 30 Days Famotidine [Pepcid] 20 mg PO BID #30 tablet oxyCODONE /ACETAMINOPHEN [Percocet 5/325 mg] 1 tab PO Q6H PRN 3 Days PRN Reason: Pain, Moderate (4-6)
[2016-11-16] MEDS: LOPRESSOR PO SCH (11:30)
[2016-11-16] MEDS: PLAQUENIL PO SCH (11:31)
[2016-11-16] MEDS: AZULFIDINE PO SCH (11:31)
[2016-11-16] MEDS: PROzac PO SCH (11:32)
[2016-11-16] MEDS: LASIX PO SCH (11:32)
[2016-11-16] MEDS: FLONASE NS SCH (11:32)
[2016-11-16 15:30] VITALS: BP 142/78
--- NOTE | 2016-11-17 10:32 | Vascular Lab Report ---
LOWER EXTREMITY VENOUS DUPLEX: REASON FOR EXAM: Pain and swelling of the lower extremities. COMMENTS ON THE RIGHT: All veins visualized are freely compressible without evidence of internal echogenicity. Flow is spontaneous and phasic throughout. 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 COMMENTS ON THE LEFT: All veins visualized are freely compressible without evidence of internal echogenicity. Flow is spontaneous and phasic throughout. IMPRESSION: No evidence of acute or chronic deep venous thrombosis in either lower extremity.
== END 2016-11-16 18:00 | disposition home health service (06) | DRG 493 ==
LOC: ED 18:44 → 3A 23:38
PROVIDERS: ADMIT Internal Medicine; ATTEND Internal Medicine
PROC: 0PSC36Z Reposition Right Humeral Head with Intramedullary Internal Fixation Device, Percutaneous Approach (ICD-10-PCS; principal; 2016-11-13)
DX: S42.201A Unspecified fracture of upper end of right humerus, initial encounter for closed fracture (principal); E66.2 Morbid (severe) obesity with alveolar hypoventilation; Z68.44 Body mass index [BMI] 60.0-69.9, adult; Y92.89 Other specified places as the place of occurrence of the external cause; E11.9 Type 2 diabetes mellitus without complications; I10 Essential (primary) hypertension; E88.81 Metabolic syndrome and other insulin resistance; M79.7 Fibromyalgia; Z71.3 Dietary counseling and surveillance; J45.909 Unspecified asthma, uncomplicated; Z87.01 Personal history of pneumonia (recurrent); K21.9 Gastro-esophageal reflux disease without esophagitis; W01.0XXA Fall on same level from slipping, tripping and stumbling without subsequent striking against object, initial encounter; Y93.89 Activity, other specified; Z79.899 Other long term (current) drug therapy; Z88.0 Allergy status to penicillin; M35.00 Sjogren syndrome, unspecified; M06.9 Rheumatoid arthritis, unspecified; Z90.710 Acquired absence of both cervix and uterus; Z83.3 Family history of diabetes mellitus; Z82.49 Family history of ischemic heart disease and other diseases of the circulatory system; E28.2 Polycystic ovarian syndrome
CPT/HCPCS: 36415; 71010; 80053; 82962; 83735; 84484; 85025; 85379; 85610; 85730; 93005; 93010; 93970; 94640; 94660; 94760; 96374; 96375; 99285; C1713; J0690; J1100; J1170; J1815; J1885; J2250; J2270; J2405; J2704; J2930; J3010; J7030

== ENCOUNTER 2016-11-22 11:46 | Outpatient (CLI) | payer OTHER ==
--- NOTE | 2016-11-22 13:46 | XRay Report ---
RIGHT SHOULDER, 3 VIEWS History: Pain. Findings: The internally fixated proximal right humerus fracture is unchanged in position and alignment since the intraoperative films dated 11/14/16. No calcified callus has developed. No new acute process is noted. Degenerative findings are stable. Impression: No change.
== END 2016-11-22 11:47 | disposition home or self-care (01) ==
LOC: XRAY 11:46
PROVIDERS: ATTEND Orthopaedic Surgery
DX: S42.201D Unspecified fracture of upper end of right humerus, subsequent encounter for fracture with routine healing (principal); I10 Essential (primary) hypertension; I48.91 Unspecified atrial fibrillation; M06.9 Rheumatoid arthritis, unspecified; E11.9 Type 2 diabetes mellitus without complications; X58.XXXD Exposure to other specified factors, subsequent encounter

== ENCOUNTER 2017-01-24 14:20 | Outpatient (CLI) | payer OTHER ==
--- NOTE | 2017-01-24 15:16 | XRay Report ---
Right shoulder: Pain; prior surgical repair. Surgical hardware with medullary adin and multiple screws noted in the proximal humerus for comminuted fracture of the head. Comparison made to the most recent prior study of November 22. No significant bone production identified. No interval change in fragment positioning. The head remains minimally subluxed. Subacromial bone space encroaching on the subacromial space unchanged from prior studies. Surface of the glenoid fossa difficult to assess but may have subchondral cysts/irregularity. Impressions: 1. Minimal evidence of bone healing. 2. Fracture appears stabilized by hardware with no interval change in positioning.
== END 2017-01-24 14:21 | disposition home or self-care (01) ==
LOC: XRAY 14:20
PROVIDERS: ATTEND Orthopaedic Surgery
DX: S42.201G Unspecified fracture of upper end of right humerus, subsequent encounter for fracture with delayed healing (principal); X58.XXXD Exposure to other specified factors, subsequent encounter

== ENCOUNTER 2017-12-04 14:17 | Outpatient (CLI) | payer OTHER ==
--- NOTE | 2017-12-05 13:03 | Mammography Report ---
BILATERAL DIGITAL SCREENING MAMMOGRAM with CAD: 12/04/17 14:17:00 CLINICAL: Routine screening.The patient could not stand and has limited range of motion in her upper extremities. The examination was performed in the wheelchair. COMPARISON:04/14/16 FINDINGS: The breasts are almost entirely fatty. No mass, architectural distortion or suspicious calcifications. IMPRESSION: No mammographic evidence of malignancy. BI-RADS CATEGORY: 1 - - Negative RECOMMENDATION: Routine mammographic screening in one year. COMMENT: Patient follow-up letters are generated by our [employer] application.
== END 2017-12-04 14:18 | disposition home or self-care (01) ==
LOC: SPVWC 14:17
PROVIDERS: ATTEND Internal Medicine
DX: Z12.31 Encounter for screening mammogram for malignant neoplasm of breast (principal); I10 Essential (primary) hypertension; I48.91 Unspecified atrial fibrillation; K21.9 Gastro-esophageal reflux disease without esophagitis; E66.9 Obesity, unspecified; Z88.8 Allergy status to other drugs, medicaments and biological substances
CPT/HCPCS: 77067

== ENCOUNTER 2019-03-07 08:49 | Outpatient (CLI) | payer OTHER ==
--- NOTE | 2019-03-10 09:11 | Mammography Report ---
DIGITAL SCREENING MAMMOGRAM WITH CAD, 03/07/2019 INDICATION: Routine screening mammography. TECHNIQUE: Digital bilateral 2D mammography was obtained in the craniocaudal and mediolateral obliq ue projections. This examination was interpreted with the benefit of Computer-Aided Detection analysi s. COMPARISON: 12/04/2017 FINDINGS: Breast Density: The breasts are almost entirely fatty. There is no evidence of dominant mass, suspicious calcifications or architectural distortion in eithe r breast. IMPRESSION: No mammographic evidence of malignancy. Follow up recommendation: Routine yearly BI-RADS Category 2: Benign. A "normal" or negative report should not discourage follow up or biopsy of a clinically significant f inding. A written summary of these findings will be mailed to the patient. The patient will be entered into a mammography reporting system which will generate a reminder letter for the patient's next appointmen t at the appropriate interval. The [employer] recommends yearly mammograms starting at age 40 and continuing as l julia as a woman is in good health. Breast MRI is recommended for women with an approximate 20-25% or greater lifetime risk of breast cancer, including women with a strong family history of breast or ova dewey cancer or who have been treated for Hodgkin's disease. Signer Name: Quinton Dale MD Signed: 03/10/2019 9:07 AM Workstation Name: [id number]
== END 2019-03-07 08:50 | disposition home or self-care (01) ==
LOC: MAMMO 08:49
PROVIDERS: ATTEND Internal Medicine
DX: Z12.31 Encounter for screening mammogram for malignant neoplasm of breast (principal)
CPT/HCPCS: 77067